=== PATIENT | female | born 1980 | race African-American/Black ===

== ENCOUNTER 2016-12-21 19:47 | Emergency (ER) | payer SELFPAY ==
--- NOTE | 2016-12-24 15:19 | ER ---
ADMIT: 12/21/2016 RM/LOC: ER [facility] MR#: [id number] [address] [facility] [address] [place], [place] [id number] CARLOS GONZALEZ M [address] [place], [place] [address] Emergency Room Report SEX: F AGE: 36 : 1980 DATE: 12/21/2016 HISTORY OF PRESENT ILLNESS: A 36-year-old female, has not gone to her [facility] for evaluation of her . She states that she is 17 weeks , has been in the ER prior to today for bacterial vaginosis and cramping. She was given medication for it and treated. She also had a yeast infection. Today, she comes in with pelvic pain. She states cramping started about an hour prior to coming to the emergency room, and she has had some vaginal bleed ever since. REVIEW OF SYSTEMS: Negative. PAST MEDICAL HISTORY: She is a 6, para 5. LMP was August 2016. The physical examination took place with an massotherapist. MEDICATIONS: She is taking multivitamins. ALLERGIES: SHE HAS NO ALLERGIES. PHYSICAL EXAMINATION: GENERAL: She was pretty apprehensive. She is alert, mildly anxious as mentioned. VITAL SIGNS: Within normal limits. Blood pressure 131/72, heart rate 100, respirations 20, temp 98.4, O2 sats 100%. ABDOMEN: Soft. PELVIS: She does have on pelvic examination active bleeding, which is mild to moderate. No tissue present in the cervix. I was unable to visualize the cervical os due to her extreme apprehension. We did try to cath her because she was bleeding and that did not go well. Her first sample of urine has blood, but it does not have any bacteria. No nitrites or leukocytes. She is not going to be treated for UTI. HEENT: Normal inspection. NECK: Supple. RESPIRATIONS: No distress. EXTREMITIES: Nontender. ADMIT: 12/21/2016 RM/LOC: ER [facility] MR#: [id number] [address] [facility] [address] [place], [place] [id number] CARLOS GONZALEZ M [address] [place] [address] Emergency Room Report SEX: F AGE: 36 : 1980 SKIN: Good color and turgor. NEUROLOGIC: Oriented x4. Mood and affect are appropriate. at bedside. LABORATORY AND IMAGING DATA: She is pending on an ultrasound. We did a beta HCG, which is 24,587. Her urine is totally clear except for the 5 red cells present due to contamination in the urine. Rh factor is A positive. CLINICAL IMPRESSION: Threatened , less than 20 weeks[address] Dr[address] العلي will be finishing up with this case and disposition of patient will follow. She is advised to follow up with Dr. Wallace, who is on-call for OB, multivitamins, hydration. MIGUEL Ackerman / Higinio العلي MD / carola JOB #: [id number] CC: Jerson Irwin MD, Attending Physician Carolyn Wallace MD, Family Physician
== END 2016-12-21 22:55 | disposition home or self-care (01) ==
LOC: ER 19:47
DX: O20.0 Threatened abortion (principal); Z3A.17 17 weeks gestation of pregnancy

== ENCOUNTER → 2017-02-06 | Outpatient (CLI) | payer MEDICAID | END | disposition home or self-care (01) | LOC: EDT 09:00 | DX: O24.419 Gestational diabetes mellitus in pregnancy, unspecified control (principal); Z71.3 Dietary counseling and surveillance ==